=== PATIENT | male | born 1940 | race Two or more races ===

== ENCOUNTER 2019-09-16 11:27 | Emergency (ER) | payer OTHER ==
[~2019-09-16] VITALS: Ht 165.1 cm; Wt 63.0 kg
[2019-09-16] MEDS ORDERED: AMLODIPINE-OLM1 EAC2 (11:48)
[2019-09-16] MEDS ORDERED: METFORMIN HCL500 M3 (11:48)
[2019-09-16] MEDS ORDERED: LOSARTAN POTASS50 MG (11:48)
== END 2019-09-16 16:05 | disposition home or self-care (01) ==
LOC: ER 11:27
DX: R11.2 Nausea with vomiting, unspecified (principal)

== ENCOUNTER 2023-04-25 12:53 | Outpatient (CLI) | payer OTHER ==
[~2023-04-25 12:53] MED LIST: AMLODIPINE-OLM1 EAC2; LOSARTAN POTASS50 MG; METFORMIN HCL500 M3
== END 2023-04-25 13:04 | disposition home or self-care (01) ==
LOC: MRI 12:53
PROVIDERS: ATTEND Psychiatry & Neurology Clinical Neurophysiology
DX: G30.9 Alzheimer's disease, unspecified (principal); R25.8 Other abnormal involuntary movements
CPT/HCPCS: 70551

== ENCOUNTER 2023-05-05 15:58 | Inpatient (IN) | payer OTHER ==
[~2023-05-05] VITALS: Ht 152.4 cm; Wt 72.6 kg
[2023-05-05] MEDS ORDERED: ADRENOID CAPSU1 EACH (16:21)
[2023-05-05] MEDS ORDERED: ECOTRIN81 MG (16:21)
[2023-05-05] MEDS ORDERED: SEROQUEL25 MG PO (16:22)
[2023-05-05 17:13] LABS: HEMATOCRIT 42.3 % (39.0-48.0); HEMOGLOBIN 13.3 g/dL (13-16.00); MEAN CELL VOLUME 93.4 fL (80.0-100.00); MEAN CORPUSCULAR HEMOGLOBIN 29.4 pg (27.00-32.0); MEAN CORPUSCULAR HGB CONC 31.5 g/dl (32.0-36.0); PLATELET COUNT 267 K/uL (150-450); RED BLOOD COUNT 4.53 M/uL (4.00-6.00); RED CELL DISTRIBUTION WIDTH 14.5 % (11.5-14.5)
[2023-05-05 17:44] LABS: ALBUMIN 4.1 gm/dL (3.4-5.0); BILIRUBIN TOTAL 0.61 mg/dL (0.3-1.2); CALCIUM 10.3 mg/dL (8.5-10.1); GFR 14.05; GLOBULINA 4.8 G/DL (2.4-3.5); POTASSIUM 5.71 mEq/L (3.5-5.1); TOTAL PROTEIN 8.9 gm/dL (6.4-8.2)
[2023-05-05 17:57] LABS: CREATININE SERUM 4.08 mg/dL (0.70-1.30)
[2023-05-05 18:49] LABS: ABG PH 7.348 (7.35-7.45); ABG PO2 69.3 mmHg (80-100); ABG pCO2 43.7 mmHg (35-45); BASE EXCESS -2.3 mmol/l; BICARBONATE 23.5 mmol/l (23-25); SaO2 92.4 %; Tco2 24.8 mmol/l; allen test SATISFACTORY; puncture site RADIAL LEFT
[2023-05-05 18:50] LABS: o2 21 %
[2023-05-05 19:25] LABS: URINE APPEARANCE Clear; URINE BILIRRUBIN Negative (NEGATIVE); URINE BLOOD Moderate; URINE COLOR Yellow; URINE LEUKOCYTE Negative; URINE NITRATE Negative; URINE PROTEIN 30 (NEGATIVE); URINE UROBILINOGEN 0.2 E.U./dl
[2023-05-05 19:28] LABS: URINE BACTERIA 88.1 uL (0.0-1933); URINE EPITHELIAL CELLS 6.6 uL (0.0-38.8); URINE WBC 4.1 uL (0.0-23.2)
[2023-05-05 19:40] LABS: URINE GLUCOSE >=1000 MG/DL (NEGATIVE)
[2023-05-05 22:43] LABS: CALCIUM 10.1 mg/dL (8.5-10.1); CREATININE SERUM 3.81 mg/dL (0.70-1.30); GFR 15.21; POTASSIUM 4.5 mEq/L (3.5-5.1)
[2023-05-06 05:04] LABS: ABG PH 7.428 (7.35-7.45); ABG PO2 74.9 mmHg (80-100); ABG pCO2 38.3 mmHg (35-45)
[2023-05-06 05:05] LABS: BASE EXCESS 0.6 mmol/l; BICARBONATE 24.8 mmol/l (23-25); SaO2 95.3 %; Tco2 25.9 mmol/l; allen test SATISFACTORY; o2 21 %; puncture site RADIAL LEFT
[2023-05-06 05:23] LABS: INR 1.03; PARTIAL THROMBOPLASTIN TIME 23.1 SECONDS (22.0-34.0); PROTHROMBIN TIME 10.8 SECONDS (9.0-11.5)
[2023-05-06 05:30] LABS: CALCIUM 9.1 mg/dL (8.5-10.1); CREATININE SERUM 2.91 mg/dL (0.70-1.30); GFR 20.75; POTASSIUM 3.71 mEq/L (3.5-5.1)
[2023-05-06 05:34] LABS: MAGNESIUM 2.9 mg/dL (1.8-2.4); PROSTATIC SPECIFIC ANTIGEN 2.86 NG/ML (0.010-4.00)
[2023-05-06 05:35] LABS: ALBUMIN 3.1 gm/dL (3.4-5.0); BILIRUBIN TOTAL 0.51 mg/dL (0.3-1.2); BILIRUBIN,CONJUGATED 0.19 mg/dL (0.0-0.2); BILIRUBIN,UNCONJUGATED 0.32 mg/dL (0.0-0.6); PHOSPHOROUS 2.7 mg/dL (2.5-4.9); TOTAL PROTEIN 6.7 gm/dL (6.4-8.2)
[2023-05-06 05:56] LABS: T4 FREE 1.14 NG/ML (0.76-1.46)
[2023-05-06 05:59] LABS: TSH 0.153 uIU/mL (0.358-3.74)
[2023-05-07 04:22] LABS: CALCIUM 9.2 mg/dL (8.5-10.1); CREATININE SERUM 2.69 mg/dL (0.70-1.30); GFR 22.72; POTASSIUM 3.89 mEq/L (3.5-5.1)
[2023-05-07 06:47] LABS: HEMATOCRIT 37.3 % (39.0-48.0); HEMOGLOBIN 12.4 g/dL (13-16.00); MEAN CELL VOLUME 89.9 fL (80.0-100.00); MEAN CORPUSCULAR HEMOGLOBIN 29.8 pg (27.00-32.0); MEAN CORPUSCULAR HGB CONC 33.2 g/dl (32.0-36.0); PLATELET COUNT 196 K/uL (150-450); RED BLOOD COUNT 4.16 M/uL (4.00-6.00); RED CELL DISTRIBUTION WIDTH 13.7 % (11.5-14.5)
[2023-05-07 07:02] LABS: ALBUMIN 3.3 gm/dL (3.4-5.0); BILIRUBIN TOTAL 0.97 mg/dL (0.3-1.2); CALCIUM 9.4 mg/dL (8.5-10.1); CREATININE SERUM 2.52 mg/dL (0.70-1.30); GFR 24.5; GLOBULINA 4.2 G/DL (2.4-3.5); POTASSIUM 3.8 mEq/L (3.5-5.1); TOTAL PROTEIN 7.5 gm/dL (6.4-8.2)
[2023-05-08 15:23] LABS: CALCIUM 9.1 mg/dL (8.5-10.1); CREATININE SERUM 3.03 mg/dL (0.70-1.30); GFR 19.81; POTASSIUM 4.27 mEq/L (3.5-5.1)
[2023-05-08 15:57] LABS: BILIRUBIN TOTAL 0.75 mg/dL (0.3-1.2); CALCIUM 9.1 mg/dL (8.5-10.1); CREATININE SERUM 3.08 mg/dL (0.70-1.30); GFR 19.44; GLOBULINA 3.9 G/DL (2.4-3.5); MAGNESIUM 2.6 mg/dL (1.8-2.4); PHOSPHOROUS 3.8 mg/dL (2.5-4.9); POTASSIUM 4.43 mEq/L (3.5-5.1); TOTAL PROTEIN 6.9 gm/dL (6.4-8.2)
[2023-05-08 15:58] LABS: MYCOPLASMA PNEUMONIAE IGM NON REACTIVE (NO REACTIVE)
[2023-05-09 00:31] LABS: HEMOGLOBIN 12.2 g/dL (13-16.00); MEAN CELL VOLUME 90.1 fL (80.0-100.00); MEAN CORPUSCULAR HEMOGLOBIN 29.8 pg (27.00-32.0); MEAN CORPUSCULAR HGB CONC 33.1 g/dl (32.0-36.0); PLATELET COUNT 165 K/uL (150-450); RED CELL DISTRIBUTION WIDTH 13.4 % (11.5-14.5)
[2023-05-09 03:23] LABS: CREATININE SERUM 3.63 mg/dL (0.70-1.30); GFR 16.08
[2023-05-09 03:24] LABS: CALCIUM 8.9 mg/dL (8.5-10.1); POTASSIUM 4.05 mEq/L (3.5-5.1)
[2023-05-09 09:46] LABS: PROCALCITONIN 2.98 ng/ml (0.020-0.080)
[2023-05-09 09:50] LABS: CORTISOL 26.5 ug/dl
[2023-05-09 12:53] LABS: URINE APPEARANCE TURBID; URINE BILIRRUBIN NEGATIVE (NEGATIVE); URINE BLOOD LARGE; URINE COLOR YELLOW; URINE GLUCOSE 250 MG/DL (NEGATIVE); URINE PROTEIN 300 (NEGATIVE)
[2023-05-09 12:54] LABS: URINE EPITHELIAL CELLS 38.1 uL (0.0-38.8); URINE LEUKOCYTE SMALL; URINE NITRATE NEGATIVE; URINE RBC 865.1 uL (0.0-20.8); URINE WBC 111.4 uL (0.0-23.2)
[2023-05-09 12:55] LABS: URINE BACTERIA 3002.5 uL (0.0-1933)
[2023-05-09 12:56] LABS: URINE YEAST MANY /hpf
[2023-05-09 12:57] LABS: URINE CRYSTALS FEW /HPF
[2023-05-10 07:37] LABS: HEMOGLOBIN 10.6 g/dL (13-16.00); MEAN CELL VOLUME 89.3 fL (80.0-100.00); MEAN CORPUSCULAR HEMOGLOBIN 29.7 pg (27.00-32.0); MEAN CORPUSCULAR HGB CONC 33.2 g/dl (32.0-36.0); RED BLOOD COUNT 3.58 M/uL (4.00-6.00); RED CELL DISTRIBUTION WIDTH 14.1 % (11.5-14.5)
[2023-05-10 07:58] LABS: PLATELET COUNT 108 K/uL (150-450)
[2023-05-10 08:00] LABS: ALBUMIN 2.3 gm/dL (3.4-5.0); BILIRUBIN TOTAL 0.56 mg/dL (0.3-1.2); CALCIUM 7.8 mg/dL (8.5-10.1); GFR 8.05; GLOBULINA 3.2 G/DL (2.4-3.5); POTASSIUM 4.46 mEq/L (3.5-5.1); TOTAL PROTEIN 5.5 gm/dL (6.4-8.2)
[2023-05-10 09:04] LABS: CREATININE SERUM 6.61 mg/dL (0.70-1.30)
[2023-05-10 12:27] LABS: PLATELET ESTIMATE NORMAL (NORMAL)
[2023-05-11 08:27] LABS: BILIRUBIN TOTAL 0.48 mg/dL (0.3-1.2); CALCIUM 7.8 mg/dL (8.5-10.1); GLOBULINA 3.2 G/DL (2.4-3.5); POTASSIUM 3.85 mEq/L (3.5-5.1); TOTAL PROTEIN 5.2 gm/dL (6.4-8.2)
[2023-05-11 09:13] LABS: HEMATOCRIT 29.8 % (39.0-48.0); HEMOGLOBIN 10.2 g/dL (13-16.00); MEAN CELL VOLUME 87.8 fL (80.0-100.00); MEAN CORPUSCULAR HGB CONC 34.2 g/dl (32.0-36.0); RED CELL DISTRIBUTION WIDTH 13.7 % (11.5-14.5)
[2023-05-11 09:15] LABS: PLATELET COUNT 97 K/uL (150-450)
[2023-05-11 09:59] LABS: C-REACTIVE PROTEIN 4.41 MG/DL (0.00-0.29); GFR 7.66
[2023-05-11 10:00] LABS: CREATININE SERUM 6.9 mg/dL (0.70-1.30)
[2023-05-11 10:06] LABS: PHOSPHOROUS 3.5 mg/dL (2.5-4.9)
[2023-05-11 13:27] LABS: MANUAL PLATELET COUNT 100
[2023-05-12 14:45] LABS: ALBUMIN 1.8 gm/dL (3.4-5.0); BILIRUBIN TOTAL 0.59 mg/dL (0.3-1.2); CALCIUM 7.1 mg/dL (8.5-10.1); GFR 11.19; GLOBULINA 2.7 G/DL (2.4-3.5); POTASSIUM 3.16 mEq/L (3.5-5.1); TOTAL PROTEIN 4.5 gm/dL (6.4-8.2)
[2023-05-12 14:56] LABS: CREATININE SERUM 4.97 mg/dL (0.70-1.30)
[2023-05-13 07:21] LABS: ALBUMIN 1.8 gm/dL (3.4-5.0); BILIRUBIN TOTAL 0.47 mg/dL (0.3-1.2); CALCIUM 7.4 mg/dL (8.5-10.1); CREATININE SERUM 3.25 mg/dL (0.70-1.30); GFR 18.27; GLOBULINA 3.1 G/DL (2.4-3.5); POTASSIUM 3.25 mEq/L (3.5-5.1); TOTAL PROTEIN 4.9 gm/dL (6.4-8.2)
[2023-05-14 07:27] LABS: ALBUMIN 1.7 gm/dL (3.4-5.0); BILIRUBIN TOTAL 0.47 mg/dL (0.3-1.2); CREATININE SERUM 2.66 mg/dL (0.70-1.30); GFR 23.02; POTASSIUM 3.97 mEq/L (3.5-5.1); TOTAL PROTEIN 4.7 gm/dL (6.4-8.2)
[2023-05-14 21:01] LABS: HEMATOCRIT 27.9 % (39.0-48.0); HEMOGLOBIN 9.6 g/dL (13-16.00); MEAN CELL VOLUME 87.3 fL (80.0-100.00); MEAN CORPUSCULAR HEMOGLOBIN 30.1 pg (27.00-32.0); MEAN CORPUSCULAR HGB CONC 34.5 g/dl (32.0-36.0); PLATELET COUNT 79 K/uL (150-450); RED CELL DISTRIBUTION WIDTH 13.1 % (11.5-14.5)
[2023-05-15 07:21] LABS: ALBUMIN 1.8 gm/dL (3.4-5.0); BILIRUBIN TOTAL 0.49 mg/dL (0.3-1.2); CALCIUM 7.4 mg/dL (8.5-10.1); CREATININE SERUM 3.06 mg/dL (0.70-1.30); GFR 19.58; GLOBULINA 3.2 G/DL (2.4-3.5); POTASSIUM 3.72 mEq/L (3.5-5.1)
[2023-05-15 08:10] LABS: hav igm Negative (Negative); hcv Non Reactive (Non Reactive); hep b c Negative (Negative)
[2023-05-15 13:19] LABS: GLU CSF 80 mg/dl (41-70)
[2023-05-15 13:20] LABS: PROT CSF 76 mg/dl (15-45)
[2023-05-15 14:19] LABS: CSF APPEARANCE CRYSTAL CLEAR; CSF COLOR COLOR LESS; CSF RBC 9.4 /mm3 (0-5.0); CSF WBC 7.15 /mm3 (0-5)
[2023-05-15 15:56] LABS: CSF MONONUCLEAR 76 %; CSF POLYMORPHONUCLEAR 23 %
[2023-05-16 06:49] LABS: ALBUMIN 1.8 gm/dL (3.4-5.0); BILIRUBIN TOTAL 0.34 mg/dL (0.3-1.2); CALCIUM 7.6 mg/dL (8.5-10.1); CREATININE SERUM 3.4 mg/dL (0.70-1.30); GFR 17.34; GLOBULINA 3.3 G/DL (2.4-3.5); MAGNESIUM 2.2 mg/dL (1.8-2.4); PHOSPHOROUS 3.9 mg/dL (2.5-4.9); POTASSIUM 3.7 mEq/L (3.5-5.1); TOTAL PROTEIN 5.1 gm/dL (6.4-8.2)
[2023-05-16 07:07] LABS: HEMATOCRIT 29.1 % (39.0-48.0); MEAN CELL VOLUME 85.7 fL (80.0-100.00); MEAN CORPUSCULAR HEMOGLOBIN 29.6 pg (27.00-32.0); MEAN CORPUSCULAR HGB CONC 34.6 g/dl (32.0-36.0); RED BLOOD COUNT 3.39 M/uL (4.00-6.00); RED CELL DISTRIBUTION WIDTH 13.5 % (11.5-14.5)
[2023-05-16 07:18] LABS: PLATELET COUNT 107 K/uL (150-450)
[2023-05-18 08:12] LABS: ALBUMIN 1.9 gm/dL (3.4-5.0); BILIRUBIN TOTAL 0.26 mg/dL (0.3-1.2); CALCIUM 7.6 mg/dL (8.5-10.1); CREATININE SERUM 3.12 mg/dL (0.70-1.30); GFR 19.15; GLOBULINA 3.3 G/DL (2.4-3.5); MAGNESIUM 2.2 mg/dL (1.8-2.4); PHOSPHOROUS 3.2 mg/dL (2.5-4.9); POTASSIUM 3.51 mEq/L (3.5-5.1); TOTAL PROTEIN 5.2 gm/dL (6.4-8.2)
[2023-05-18 08:16] LABS: HEMATOCRIT 25.4 % (39.0-48.0); MEAN CORPUSCULAR HGB CONC 34.4 g/dl (32.0-36.0); RED BLOOD COUNT 2.92 M/uL (4.00-6.00); RED CELL DISTRIBUTION WIDTH 12.9 % (11.5-14.5)
[2023-05-18 08:18] LABS: MEAN CORPUSCULAR HEMOGLOBIN 29.7 pg (27.00-32.0)
[2023-05-18 08:19] LABS: HEMOGLOBIN 8.7 g/dL (13-16.00); PLATELET COUNT 122 K/uL (150-450)
[2023-05-18 08:31] LABS: C-REACTIVE PROTEIN 2.99 MG/DL (0.00-0.29)
[2023-05-19 14:05] LABS: hsv I pcr Positive (Negative)
[2023-05-19 14:33] LABS: ABG PH 7.433 (7.35-7.45); ABG PO2 64.5 mmHg (80-100); BASE EXCESS 0.8 mmol/l; BICARBONATE 24.8 mmol/l (23-25)
[2023-05-19 14:34] LABS: o2 21 %
[2023-05-19 14:35] LABS: allen test SATISFACTORY; puncture site RADIAL RIGHT
[2023-05-20 07:30] LABS: MEAN CELL VOLUME 86.7 fL (80.0-100.00); MEAN CORPUSCULAR HGB CONC 34.6 g/dl (32.0-36.0); RED BLOOD COUNT 2.58 M/uL (4.00-6.00); RED CELL DISTRIBUTION WIDTH 12.8 % (11.5-14.5)
[2023-05-20 07:31] LABS: HEMOGLOBIN 7.7 g/dL (13-16.00); MEAN CORPUSCULAR HEMOGLOBIN 29.8 pg (27.00-32.0)
[2023-05-20 07:32] LABS: HEMATOCRIT 22.4 % (39.0-48.0); PLATELET COUNT 101 K/uL (150-450)
[2023-05-20 07:37] LABS: ALBUMIN 1.7 gm/dL (3.4-5.0); CALCIUM 7.6 mg/dL (8.5-10.1); CREATININE SERUM 2.62 mg/dL (0.70-1.30); GFR 23.43; PHOSPHOROUS 3.4 mg/dL (2.5-4.9)
[2023-05-20 07:57] LABS: POTASSIUM 2.88 mEq/L (3.5-5.1)
[2023-05-21 10:26] LABS: HEMATOCRIT 27.8 % (39.0-48.0); MEAN CELL VOLUME 83.2 fL (80.0-100.00); MEAN CORPUSCULAR HGB CONC 34.4 g/dl (32.0-36.0); RED BLOOD COUNT 3.35 M/uL (4.00-6.00); RED CELL DISTRIBUTION WIDTH 14.5 % (11.5-14.5)
[2023-05-21 10:27] LABS: MEAN CORPUSCULAR HEMOGLOBIN 28.6 pg (27.00-32.0)
[2023-05-21 10:28] LABS: HEMOGLOBIN 9.6 g/dL (13-16.00); PLATELET COUNT 118 K/uL (150-450)
[2023-05-21 10:59] LABS: ALBUMIN 1.6 gm/dL (3.4-5.0); BILIRUBIN TOTAL 0.34 mg/dL (0.3-1.2); CALCIUM 7.4 mg/dL (8.5-10.1); CREATININE SERUM 2.33 mg/dL (0.70-1.30); GFR 26.82; GLOBULINA 3.8 G/DL (2.4-3.5); MAGNESIUM 1.7 mg/dL (1.8-2.4); PHOSPHOROUS 3.8 mg/dL (2.5-4.9); POTASSIUM 3.46 mEq/L (3.5-5.1); TOTAL PROTEIN 5.4 gm/dL (6.4-8.2)
[2023-05-21 11:10] LABS: PH,URINE 5.5 (5.0-8.0); URINE APPEARANCE Cloudy; URINE BILIRRUBIN Negative (NEGATIVE); URINE BLOOD Large; URINE COLOR Yellow; URINE GLUCOSE Negative (NEGATIVE); URINE LEUKOCYTE Small; URINE NITRATE Negative; URINE UROBILINOGEN 0.2 E.U./dl
[2023-05-21 11:13] LABS: URINE BACTERIA 93.2 uL (0.0-1933); URINE EPITHELIAL CELLS 2.3 uL (0.0-38.8); URINE RBC 1462.8 uL (0.0-20.8); URINE WBC 199.7 uL (0.0-23.2)
[2023-05-21 11:19] LABS: C-REACTIVE PROTEIN 6.45 MG/DL (0.00-0.29)
[2023-05-21 11:50] LABS: URINE PROTEIN 300 (NEGATIVE)
[2023-05-21 11:51] LABS: URINE YEAST MANY /hpf
[2023-05-22 07:05] LABS: MAGNESIUM 2.6 mg/dL (1.8-2.4); PHOSPHOROUS 3.2 mg/dL (2.5-4.9)
[2023-05-23 05:58] LABS: HEMATOCRIT 27.8 % (39.0-48.0); HEMOGLOBIN 9.6 g/dL (13-16.00); MEAN CELL VOLUME 85.3 fL (80.0-100.00); MEAN CORPUSCULAR HEMOGLOBIN 29.4 pg (27.00-32.0); MEAN CORPUSCULAR HGB CONC 34.4 g/dl (32.0-36.0); PLATELET COUNT 154 K/uL (150-450); RED BLOOD COUNT 3.25 M/uL (4.00-6.00); RED CELL DISTRIBUTION WIDTH 14.6 % (11.5-14.5)
[2023-05-23 06:33] LABS: ERYTHROCYTE SEDIMENTATION RATE 71 mm/hr
[2023-05-23 06:44] LABS: INR 1.02; PARTIAL THROMBOPLASTIN TIME 32.9 SECONDS (22.0-34.0); PROTHROMBIN TIME 10.7 SECONDS (9.0-11.5)
[2023-05-23 06:45] LABS: ALBUMIN 1.8 gm/dL (3.4-5.0); BILIRUBIN TOTAL 0.27 mg/dL (0.3-1.2); CALCIUM 7.7 mg/dL (8.5-10.1); CREATININE SERUM 2.41 mg/dL (0.70-1.30); D DIMER 5.45 MG/L; GFR 25.8; GLOBULINA 3.4 G/DL (2.4-3.5); POTASSIUM 3.47 mEq/L (3.5-5.1); TOTAL PROTEIN 5.2 gm/dL (6.4-8.2)
[2023-05-24 05:01] LABS: ob NEGATIVE (NEGATIVE)
[2023-05-24 06:44] LABS: HEMATOCRIT 28.7 % (39.0-48.0); HEMOGLOBIN 9.8 g/dL (13-16.00); MEAN CELL VOLUME 84.4 fL (80.0-100.00); MEAN CORPUSCULAR HEMOGLOBIN 28.9 pg (27.00-32.0); MEAN CORPUSCULAR HGB CONC 34.2 g/dl (32.0-36.0); PLATELET COUNT 188 K/uL (150-450); RED CELL DISTRIBUTION WIDTH 14.8 % (11.5-14.5)
[2023-05-24 06:57] LABS: CALCIUM 7.7 mg/dL (8.5-10.1); CREATININE SERUM 2.48 mg/dL (0.70-1.30); GFR 24.96; MAGNESIUM 2.3 mg/dL (1.8-2.4); PHOSPHOROUS 2.7 mg/dL (2.5-4.9); POTASSIUM 3.76 mEq/L (3.5-5.1)
[2023-05-24 06:59] LABS: CREATININE SERUM 2.48 mg/dL (0.8-1.3)
[2023-05-25 08:28] LABS: ALBUMIN 1.7 gm/dL (3.4-5.0); BILIRUBIN TOTAL 0.3 mg/dL (0.3-1.2); CALCIUM 7.8 mg/dL (8.5-10.1); CREATININE SERUM 2.42 mg/dL (0.70-1.30); GFR 25.67; GLOBULINA 3.4 G/DL (2.4-3.5); POTASSIUM 3.47 mEq/L (3.5-5.1); TOTAL PROTEIN 5.1 gm/dL (6.4-8.2)
[2023-05-27 08:13] LABS: HEMATOCRIT 25.6 % (39.0-48.0); MEAN CELL VOLUME 85.7 fL (80.0-100.00); MEAN CORPUSCULAR HGB CONC 34.6 g/dl (32.0-36.0); PLATELET COUNT 228 K/uL (150-450); RED BLOOD COUNT 2.99 M/uL (4.00-6.00); RED CELL DISTRIBUTION WIDTH 14.4 % (11.5-14.5)
[2023-05-27 08:20] LABS: HEMOGLOBIN 8.9 g/dL (13-16.00); MEAN CORPUSCULAR HEMOGLOBIN 29.7 pg (27.00-32.0)
[2023-05-27 08:25] LABS: ALBUMIN 1.6 gm/dL (3.4-5.0); BILIRUBIN TOTAL 0.26 mg/dL (0.3-1.2); CALCIUM 7.6 mg/dL (8.5-10.1); CREATININE SERUM 2.19 mg/dL (0.70-1.30); GFR 28.81; GLOBULINA 3.2 G/DL (2.4-3.5); MAGNESIUM 1.8 mg/dL (1.8-2.4); PHOSPHOROUS 2.5 mg/dL (2.5-4.9); POTASSIUM 3.47 mEq/L (3.5-5.1); TOTAL PROTEIN 4.8 gm/dL (6.4-8.2)
[2023-05-28 07:09] LABS: HEMATOCRIT 26.4 % (39.0-48.0); HEMOGLOBIN 9.1 g/dL (13-16.00); MEAN CELL VOLUME 85.9 fL (80.0-100.00); MEAN CORPUSCULAR HEMOGLOBIN 29.5 pg (27.00-32.0); MEAN CORPUSCULAR HGB CONC 34.4 g/dl (32.0-36.0); PLATELET COUNT 233 K/uL (150-450); RED BLOOD COUNT 3.07 M/uL (4.00-6.00); RED CELL DISTRIBUTION WIDTH 14.7 % (11.5-14.5)
[2023-05-28 07:38] LABS: ERYTHROCYTE SEDIMENTATION RATE 60 mm/hr
[2023-05-28 07:41] LABS: ALBUMIN 1.7 gm/dL (3.4-5.0); BILIRUBIN TOTAL 0.31 mg/dL (0.3-1.2); CALCIUM 7.8 mg/dL (8.5-10.1); CREATININE SERUM 2.2 mg/dL (0.70-1.30); GFR 28.66; GLOBULINA 3.4 G/DL (2.4-3.5); POTASSIUM 3.69 mEq/L (3.5-5.1); TOTAL PROTEIN 5.1 gm/dL (6.4-8.2)
[2023-05-28 07:43] LABS: C-REACTIVE PROTEIN 3.34 MG/DL (0.00-0.29)
[2023-05-29 06:12] LABS: HEMATOCRIT 28.1 % (39.0-48.0); HEMOGLOBIN 9.8 g/dL (13-16.00); MEAN CELL VOLUME 87.4 fL (80.0-100.00); MEAN CORPUSCULAR HEMOGLOBIN 30.5 pg (27.00-32.0); MEAN CORPUSCULAR HGB CONC 34.9 g/dl (32.0-36.0); PLATELET COUNT 258 K/uL (150-450); RED BLOOD COUNT 3.21 M/uL (4.00-6.00); RED CELL DISTRIBUTION WIDTH 14.1 % (11.5-14.5)
[2023-05-29 06:39] LABS: CALCIUM 7.9 mg/dL (8.5-10.1); CREATININE SERUM 2.17 mg/dL (0.70-1.30); GFR 29.12; MAGNESIUM 1.8 mg/dL (1.8-2.4); PHOSPHOROUS 2.8 mg/dL (2.5-4.9); POTASSIUM 3.95 mEq/L (3.5-5.1)
[2023-05-30 07:00] LABS: PH,URINE 5.5 (5.0-8.0); URINE APPEARANCE Clear; URINE BILIRRUBIN Negative (NEGATIVE); URINE BLOOD Small; URINE COLOR Yellow; URINE LEUKOCYTE Trace; URINE NITRATE Negative; URINE UROBILINOGEN 0.2 E.U./dl
[2023-05-30 07:02] LABS: URINE BACTERIA 59.2 uL (0.0-1933); URINE EPITHELIAL CELLS 11.2 uL (0.0-38.8); URINE RBC 12.3 uL (0.0-20.8); URINE WBC 151.3 uL (0.0-23.2)
[2023-05-30 07:07] LABS: CALCIUM 7.6 mg/dL (8.5-10.1); CREATININE SERUM 2.17 mg/dL (0.70-1.30); GFR 29.12; MAGNESIUM 1.7 mg/dL (1.8-2.4); PHOSPHOROUS 2.8 mg/dL (2.5-4.9); POTASSIUM 3.34 mEq/L (3.5-5.1)
[2023-05-30 07:08] LABS: HEMATOCRIT 26.9 % (39.0-48.0); HEMOGLOBIN 9.1 g/dL (13-16.00); MEAN CELL VOLUME 87.6 fL (80.0-100.00); MEAN CORPUSCULAR HEMOGLOBIN 29.7 pg (27.00-32.0); MEAN CORPUSCULAR HGB CONC 33.9 g/dl (32.0-36.0); PLATELET COUNT 275 K/uL (150-450); RED BLOOD COUNT 3.07 M/uL (4.00-6.00); RED CELL DISTRIBUTION WIDTH 14.3 % (11.5-14.5)
[2023-05-30 07:53] LABS: URINE GLUCOSE 100 MG/DL (NEGATIVE); URINE PROTEIN 100 (NEGATIVE)
[2023-05-30 07:55] LABS: URINE EPITHELIAL CELLS 0-4 /HPF; URINE YEAST MODERATE /hpf
[2023-06-01 07:38] LABS: CALCIUM 8.1 mg/dL (8.5-10.1); CREATININE SERUM 2.74 mg/dL (0.70-1.30); GFR 22.25; MAGNESIUM 1.9 mg/dL (1.8-2.4); PHOSPHOROUS 3.2 mg/dL (2.5-4.9); POTASSIUM 3.96 mEq/L (3.5-5.1)
[2023-06-01 07:40] LABS: HEMATOCRIT 30.1 % (39.0-48.0); HEMOGLOBIN 10.2 g/dL (13-16.00); MEAN CELL VOLUME 89.7 fL (80.0-100.00); MEAN CORPUSCULAR HEMOGLOBIN 30.5 pg (27.00-32.0); PLATELET COUNT 282 K/uL (150-450); RED BLOOD COUNT 3.36 M/uL (4.00-6.00); RED CELL DISTRIBUTION WIDTH 14.5 % (11.5-14.5)
[2023-06-02 07:12] LABS: ALBUMIN 1.7 gm/dL (3.4-5.0); BILIRUBIN TOTAL 0.39 mg/dL (0.3-1.2); CREATININE SERUM 2.77 mg/dL (0.70-1.30); GFR 21.97; GLOBULINA 3.8 G/DL (2.4-3.5); MAGNESIUM 2.1 mg/dL (1.8-2.4); PHOSPHOROUS 3.7 mg/dL (2.5-4.9); POTASSIUM 4.11 mEq/L (3.5-5.1); TOTAL PROTEIN 5.5 gm/dL (6.4-8.2)
[2023-06-02 07:30] LABS: C-REACTIVE PROTEIN 11.6 MG/DL (0.00-0.29)
[2023-06-02 07:51] LABS: HEMATOCRIT 28.3 % (39.0-48.0); HEMOGLOBIN 9.8 g/dL (13-16.00); MEAN CELL VOLUME 89.3 fL (80.0-100.00); MEAN CORPUSCULAR HEMOGLOBIN 30.8 pg (27.00-32.0); MEAN CORPUSCULAR HGB CONC 34.5 g/dl (32.0-36.0); PLATELET COUNT 283 K/uL (150-450); RED BLOOD COUNT 3.17 M/uL (4.00-6.00); RED CELL DISTRIBUTION WIDTH 14.6 % (11.5-14.5)
[2023-06-03 06:46] LABS: HEMATOCRIT 30.8 % (39.0-48.0); HEMOGLOBIN 10.3 g/dL (13-16.00); MEAN CELL VOLUME 90.9 fL (80.0-100.00); MEAN CORPUSCULAR HEMOGLOBIN 30.3 pg (27.00-32.0); MEAN CORPUSCULAR HGB CONC 33.3 g/dl (32.0-36.0); PLATELET COUNT 328 K/uL (150-450); RED BLOOD COUNT 3.39 M/uL (4.00-6.00); RED CELL DISTRIBUTION WIDTH 14.8 % (11.5-14.5)
[2023-06-03 07:12] LABS: CALCIUM 8.2 mg/dL (8.5-10.1); CREATININE SERUM 2.96 mg/dL (0.70-1.30); GFR 20.35; PHOSPHOROUS 3.7 mg/dL (2.5-4.9); POTASSIUM 4.32 mEq/L (3.5-5.1)
[2023-06-03 09:11] LABS: ABG PH 7.486 (7.35-7.45)
[2023-06-03 09:13] LABS: ABG PO2 51.2 mmHg (80-100); BASE EXCESS 2.8 mmol/l; BICARBONATE 25.8 mmol/l (23-25); SaO2 89.2 %; Tco2 26.9 mmol/l; allen test SATISFACTORY; o2 40 %; puncture site RADIAL LEFT
[2023-06-04 08:27] LABS: ABG PH 7.501 (7.35-7.45); ABG PO2 99.7 mmHg (80-100); ABG pCO2 35.1 mmHg (35-45); BASE EXCESS 3.9 mmol/l; BICARBONATE 26.8 mmol/l (23-25); SaO2 98.4 %; Tco2 27.9 mmol/l; allen test SATISFACTORY; o2 40 %; puncture site RADIAL RIGHT
[2023-06-06 06:40] LABS: HEMATOCRIT 24.1 % (39.0-48.0); MEAN CELL VOLUME 91.3 fL (80.0-100.00); MEAN CORPUSCULAR HGB CONC 33.9 g/dl (32.0-36.0); PLATELET COUNT 357 K/uL (150-450); RED BLOOD COUNT 2.64 M/uL (4.00-6.00); RED CELL DISTRIBUTION WIDTH 15.1 % (11.5-14.5)
[2023-06-06 06:44] LABS: HEMOGLOBIN 8.2 g/dL (13-16.00)
[2023-06-06 07:06] LABS: ALBUMIN 1.5 gm/dL (3.4-5.0); BILIRUBIN TOTAL 0.57 mg/dL (0.3-1.2); CALCIUM 7.6 mg/dL (8.5-10.1); GFR 14.59; MAGNESIUM 2.1 mg/dL (1.8-2.4); PHOSPHOROUS 5.2 mg/dL (2.5-4.9); POTASSIUM 3.43 mEq/L (3.5-5.1); TOTAL PROTEIN 5.5 gm/dL (6.4-8.2)
[2023-06-06 07:18] LABS: CREATININE SERUM 3.95 mg/dL (0.70-1.30)
[2023-06-06 15:14] LABS: URINE APPEARANCE Turbid; URINE BILIRRUBIN Negative (NEGATIVE); URINE BLOOD Large; URINE COLOR Yellow; URINE GLUCOSE Negative (NEGATIVE); URINE LEUKOCYTE Small; URINE NITRATE Negative; URINE UROBILINOGEN 0.2 E.U./dl
[2023-06-06 15:18] LABS: URINE EPITHELIAL CELLS 41.7 uL (0.0-38.8); URINE WBC 181.6 uL (0.0-23.2)
[2023-06-06 15:32] LABS: URINE PROTEIN 300 (NEGATIVE)
== END 2023-06-11 08:46 | disposition expired | DRG 637 ==
LOC: ER 15:58 → ICU-2 05-06 00:34 → ICU 05-06 00:34 → MEDI 05-06 00:34 → MEDJ 05-07 14:58 → MEDI 05-07 15:38 → ICU 05-16 16:58 → MEDJ 06-07 19:12
PROVIDERS: Anesthesiology Pain Medicine; Emergency Medicine; General Practice; Internal Medicine; Internal Medicine Critical Care Medicine; Internal Medicine Endocrinology, Diabetes & Metabolism; Internal Medicine Hematology & Oncology; Internal Medicine Infectious Disease; Internal Medicine Nephrology; ADMIT Internal Medicine; ATTEND Internal Medicine
PROC: 4A12X4Z Monitoring of Cardiac Electrical Activity, External Approach (ICD-10-PCS; 2023-05-08)
PROC: 02HV33Z Insertion of Infusion Device into Superior Vena Cava, Percutaneous Approach (ICD-10-PCS; 2023-05-09)
PROC: BW24ZZZ Computerized Tomography (CT Scan) of Chest and Abdomen (ICD-10-PCS; 2023-05-09)
PROC: B24BZZZ Ultrasonography of Heart with Aorta (ICD-10-PCS; 2023-05-09)
PROC: BW28ZZZ Computerized Tomography (CT Scan) of Head (ICD-10-PCS; 2023-05-11)
PROC: 5A1D80Z Performance of Urinary Filtration, Prolonged Intermittent, 6-18 hours Per Day (ICD-10-PCS; 2023-05-11)
PROC: 5A1D80Z Performance of Urinary Filtration, Prolonged Intermittent, 6-18 hours Per Day (ICD-10-PCS; 2023-05-12)
PROC: BW24ZZZ Computerized Tomography (CT Scan) of Chest and Abdomen (ICD-10-PCS; 2023-05-13)
PROC: BW28ZZZ Computerized Tomography (CT Scan) of Head (ICD-10-PCS; 2023-05-13)
PROC: B54PZZZ Ultrasonography of Bilateral Upper Extremity Veins (ICD-10-PCS; 2023-05-13)
PROC: 5A1D80Z Performance of Urinary Filtration, Prolonged Intermittent, 6-18 hours Per Day (ICD-10-PCS; 2023-05-13)
PROC: 0S9 Lower Joints, Drainage (ICD-10-PCS; principal; 2023-05-15 09:45)
PROC: 5A1D80Z Performance of Urinary Filtration, Prolonged Intermittent, 6-18 hours Per Day (ICD-10-PCS; 2023-05-16)
PROC: 5A1D80Z Performance of Urinary Filtration, Prolonged Intermittent, 6-18 hours Per Day (ICD-10-PCS; 2023-05-18)
PROC: 5A09457 Assistance with Respiratory Ventilation, 24-96 Consecutive Hours, Continuous Positive Airway Pressure (ICD-10-PCS; 2023-05-19)
PROC: 30233N1 Transfusion of Nonautologous Red Blood Cells into Peripheral Vein, Percutaneous Approach (ICD-10-PCS; 2023-05-20)
PROC: 5A1D80Z Performance of Urinary Filtration, Prolonged Intermittent, 6-18 hours Per Day (ICD-10-PCS; 2023-05-21)
PROC: 0DH60UZ Insertion of Feeding Device into Stomach, Open Approach (ICD-10-PCS; 2023-05-31)
DX: E11.00 Type 2 diabetes mellitus with hyperosmolarity without nonketotic hyperglycemic-hyperosmolar coma (NKHHC) (principal); A39.0 Meningococcal meningitis; A41.9 Sepsis, unspecified organism; J96.00 Acute respiratory failure, unspecified whether with hypoxia or hypercapnia; J96.01 Acute respiratory failure with hypoxia; B00.4 Herpesviral encephalitis; G93.41 Metabolic encephalopathy; J69.0 Pneumonitis due to inhalation of food and vomit; N17.9 Acute kidney failure, unspecified; N18.4 Chronic kidney disease, stage 4 (severe); N39.0 Urinary tract infection, site not specified; Z79.4 Long term (current) use of insulin; R41.82 Altered mental status, unspecified; R13.19 Other dysphagia; E87.5 Hyperkalemia; G30.9 Alzheimer's disease, unspecified; F02.80 Dementia in other diseases classified elsewhere, unspecified severity, without behavioral disturbance, psychotic disturbance, mood disturbance, and anxiety; D63.8 Anemia in other chronic diseases classified elsewhere; I48.91 Unspecified atrial fibrillation; I12.9 Hypertensive chronic kidney disease with stage 1 through stage 4 chronic kidney disease, or unspecified chronic kidney disease; E11.22 Type 2 diabetes mellitus with diabetic chronic kidney disease; E86.0 Dehydration; D69.6 Thrombocytopenia, unspecified; G25.5 Other chorea; B96.89 Other specified bacterial agents as the cause of diseases classified elsewhere; I11.0 Hypertensive heart disease with heart failure; I50.9 Heart failure, unspecified
CPT/HCPCS: 70544; 70553